=== PATIENT | female | born 1965 | race Asian ===

== ENCOUNTER 2024-08-09 10:46 | Emergency (ER) | payer MEDICAID ==
[~2024-08-09] VITALS: Ht 152.4 cm; Wt 90.0 kg
[2024-08-09 10:56] VITALS: TEMP 98.4
[2024-08-09] MEDS ORDERED: METO25 PO (11:00)
[2024-08-09 11:19] LABS: BASOPHILS % (AUTO) 0.5 % (0.0-2.0); EOSINOPHILS % (AUTO) 3.8 % (1.0-6.0); HEMATOCRIT 44.3 % (36-46); HEMOGLOBIN 14.2 g/dL (12.0-16.0); LYMPHOCYTES # (AUTO) 2.6 K/uL (1.0-4.8); LYMPHOCYTES % (AUTO) 27.4 % (22.0-44.0); MEAN CORPUSCULAR HEMOGLOBIN 27.7 pg (26.0-34.0); MEAN CORPUSCULAR HGB CONC 31.9 G/dL (31.0-37.0); MEAN CORPUSCULAR VOLUME 87 fL (80-100); MONOCYTES # (AUTO) 0.6 K/uL (0.1-1.0); MONOCYTES % (AUTO) 6.3 % (2.0-9.0); NEUTROPHILS # (AUTO) 5.8 K/uL (1.8-7.7); PLATELET COUNT (AUTO) 395 K/uL (150-450); RED BLOOD CELL COUNT(AUTO) 5.12 MIL/uL (4.00-5.20); RED CELL DISTRIBUTION WIDTH 14.3 % (11.5-14.5); WHITE BLOOD COUNT (AUTO) 9.4 K/uL (4.5-11.0)
[2024-08-09 11:25] LABS: CREATININE 0.99 mg/dL (0.60-1.30); POTASSIUM 3.9 mmol/L (3.5-5.1)
[2024-08-09 11:38] LABS: TROPONIN I-HIGH SENSITIVITY 20 ng/L (<51)
[2024-08-09 11:56] VITALS: BP 156/91; PULSE 66; RESP 16; O2SAT 96
== END 2024-08-09 12:36 | disposition home or self-care (01) ==
LOC: EMS 10:49
DX: R06.09 Other forms of dyspnea (principal); R07.89 Other chest pain; J45.909 Unspecified asthma, uncomplicated; I10 Essential (primary) hypertension
CPT/HCPCS: 71045; 80048; 83880; 84484; 85025; 85379; 93005; 99285; 36415-L1; 36415-TC